=== PATIENT | male | born 1990 | race Caucasian/White ===

== ENCOUNTER → 2017-04-01 | Outpatient (CLI) | payer OTHER ==
[~2017-04-01] MED LIST: ADVIL200 MG OR; IMITREX50 MG PO; METHYLPRED DP4 MG PO
--- NOTE | 2017-04-04 09:47 | RADIOLOGY REPORT PS360 ---
DIG MAMM-DX JESSICA W/CAD, US BREAST-RT COMPLETE W/AXILLA COMPARISON: None INDICATION: Palpable abnormality in the right nipple region ORDERING PHYSICIAN: Kassy Pritchard APRN PATIENT AGE: 26 years TECHNIQUE: Standard images performed along with right breast ultrasound FINDINGS: Asymmetric density is noted in the retroareolar region slightly laterally on the right. As felt to be related to mild gynecomastia. The left breast has an unremarkable appearance. Right breast ultrasound: Heterogeneous echogenicity is present corresponding to the palpable abnormality just lateral to the right nipple with some small cystic areas in this region. This is felt to be related to gynecomastia with small cystic changes. No shadowing. No other significant anomalies are evident. IMPRESSION: Probably benign findings. No convincing evidence of malignancy. BI-RADS CATEGORY: 3_Probably Benign-Short Term F/U RECOMMENDED FOLLOWUP: 6 month mammographic and sonographic follow-up on the right.. Follow-up recommended center if the palpable left amount of the continues to enlarge (A letter has been sent to the patient regarding results of the study.)
== END ==
LOC: RAD 14:58
DX: N63.10 Unspecified lump in the right breast, unspecified quadrant (principal)
CPT/HCPCS: G0204